=== PATIENT | female | born 1980 | race Caucasian/White ===

== ENCOUNTER 2018-05-01 05:24 | Day surgery (SDC) | payer OTHER ==
[2018-04-27 12:31] VITALS: BMI 28.5
[2018-05-01] MEDS ORDERED: MIDAZOLAM HCL 2 MG/2 ML SINGLE DOSE VIAL ONE (07:49)
[2018-05-01] MEDS ORDERED: LIDOCAINE HCL/PF 2% SDV 5ML VIAL ONE (07:56)
[2018-05-01] MEDS ORDERED: DEXAMETHASONE SOD PHOSPHATE 4 MG/1 ML VIAL ONE ×2 (07:56→08:53)
[2018-05-01] MEDS ORDERED: PROPOFOL 20 ML ONE (07:57)
[2018-05-01] MEDS ORDERED: ROCURONIUM BROMIDE 50 MG/5 ML VIAL ONE (07:57)
--- NOTE | 2018-05-01 08:14 | HP ---
Admitting History and Physical - Admission Chief Complaint: Desires BTL History of Present Illness: 37yo here for tubal sterilization. One child, desires no future childbearing. Currently single. Adamant she wants sterilization vs LARCs. No questions or concerns today. No GODOY, CP/SOB, no N/V. 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: Alzheimer's, CVA, Dementia, Migraine, Multiple Sclerosis, Peripheral Neuropathy, Parkinson's, Seizure, Syncope, TIA, Vertigo, Other Cardiovascular: No: AFIB, Aneurysm, Aortic Insufficiency, Aortic Stenosis, CAD, CHF, Deep Vein Thrombosis, HTN, Hyperlipdemia, [place], Mitral Insufficiency, Mitral Stenosis, Murmur, Pulmonary Hypertension, Other Pulmonary: No: Asthma, Bronchitis, Cancer, COPD, O2 Dependent, Pneumonia, Previously Intubated, Pulmonary Embolus, Pulmonary Fibrosis, Sleep Apnea, Other Gastrointestinal: No: Ascites, Cancer, Constipation, Crohn's Disease, Diverticulitis, Diverticulosis, Esophageal Varices, Gastritis, GERD, GI Bleed, Hemorrhoids, Hiatal Hernia, Inflamatory Bowel Disease, Irritable Bowel Disease, Pancreatitis, Peptic Ulcer Disease, Ulcerative Colitis, Other Hepatobiliary: No: Cirrhosis, Cholelithiasis, Cholecystitis, Choledocholithiasis , Hepatitis A, Hepatitis B, Hepatitis C, Other ...LMP: 04/15/18 ...: No ...: 1 ...Para: 1 Heme/Onc: Yes: Anemia Infectious Disease: No: AIDS, C-Diff, Herpes Zoster, HIV, MRSA, STD's, Tuberculosis, VREF, Other Psych: No: Addictions, Anxiety, Bipolar, Depression, Panic, Psychosis, Schizophrenia, Other Musculoskeletal: No: Bursitis, Chronic low back pain, Hemiparesis, Hemiplegia, Osteoarthritis, Paraplegia, Other Rheumatology: No: Fibromyalgia, Gout, Lupus, Rheumatoid Arthritis, Sarcoidosis, Vasculitis, Other Endocrine: No: Darlington's Disease, Devika's Disease, Diabetes Insipidus, Diabetes Mellitus, Hyperparathyroidism, Hyperthyroidism, Hypothyroidism, Osteopenia, SIADH, Other Dermatology: No: Basal Cell, Cellulitis, Eczema, Melanoma, Psoriasis, Squamous Cell, Other - Past Surgical History Past Surgical History: No: None, AAA Repair, AICD, Amputation, Appendectomy, Arthrosocopy, AV Fistula/Graft, Bariatric Surgery, Breast Biopsy, Bypass, CABG, Carotid Endarterectomy, Cataract Removal, Cholecystectomy, Colectomy, Colonoscopy, Colostomy, Craniotomy, , Cystectomy, Hernia Repair, Hysterectomy, Ileal Conduit, Ileosotomy, Joint Replacement, Kidney Transplant, Laminectomy, Liver Transplant, Mastectomy, Nephrectomy, Oopherectomy, Orchiectomy, Permanent Pacemaker, Prostatectomy, Splenectomy, Stent, Thoracotomy , TURP, Tonsillectomy, Tubal Ligation, Upper Endoscopy, Valve Replacement, Vasectomy, Vein Stripping/Ligation - Smoking History Smoking history: Never smoked Have you smoked in the past 12 months: No - Alcohol/Substance Use Hx Alcohol Use: No History of Substance Use: reports: None - Social History Usual Living Arrangement: Yes: Alone, With Child History of Recent Travel: No Home Medications - Allergies Allergies/Adverse Reactions: Allergies Allergy/AdvReac Type Severity Reaction Status Date / Time No Known Allergies Allergy Verified 04/27/18 12:31 - Home Medications Home Medications: Ambulatory Orders NK [No Known Home Medication] 04/27/18 Physical Examination Vital Signs: Vital Signs Temperature 98.5 F 05/01/18 06:37 Pulse Rate 86 05/01/18 06:37 Respiratory Rate 18 05/01/18 06:37 Blood Pressure 125/72 05/01/18 06:37 O2 Sat by Pulse Oximetry (%) 99 05/01/18 06:37 Constitutional: Yes: Well Nourished, No Distress, Calm Eyes: Yes: WNL, Conjunctiva Clear, EOM Intact HENT: Yes: WNL, Atraumatic, Normocephalic Neck: Yes: WNL, Supple, Trachea Midline Cardiovascular: Yes: WNL, Regular Rate and Rhythm Respiratory: Yes: WNL, Regular, CTA Bilaterally Gastrointestinal: Yes: WNL, Normal Bowel Sounds Musculoskeletal: Yes: WNL Extremities: Yes: WNL Edema: No Integumentary: Yes: WNL Neurological: Yes: WNL, Alert, Oriented ...Motor Strength: WNL Psychiatric: Yes: WNL Problem List - Problems (1) Sterilization Code(s): Z30.2 - ENCOUNTER FOR STERILIZATION Assessment/Plan 37yo here for sterilization, LSC bilateral salpingectomy All questions answered; consents previously signed Declined alternative LARCs Risk of procedure including bleeding, infection, injury to bladder, bowel, ovaries, ureters discussed; consent signed NPO, IVFs SCDs, Gallegos Proceed to OR for LSC bilateral salpingectomy Kera Hager MD
[2018-05-01] MEDS ORDERED: BUPIVACAINE HCL/PF 0.25% (2.5MG/ML) 10 ML VIAL ONE (08:42)
[2018-05-01] MEDS ORDERED: NEOSTIGMINE METHYLSULFATE 0.5 MG/ML - 10 ML MDV ONE (08:53)
[2018-05-01] MEDS ORDERED: GLYCOPYRROLATE 0.2 MG/1 ML VIAL ONE (08:53)
[2018-05-01] MEDS ORDERED: BUPIVACAINE HCL/PF 0.25% (2.5MG/ML) 10 ML VIAL IJ ONE (08:55)
[2018-05-01] MEDS ORDERED: LACTATED RINGERS SOLUTION 1,000 ML IV SCH (09:15)
[2018-05-01] MEDS ORDERED: oxyCODONE HCL 5 MG TABLET PO PRN (09:15)
[2018-05-01] MEDS ORDERED: PROMETHAZINE HCL 25 MG/1 ML VIAL IVPB PRN (09:15)
[2018-05-01] MEDS ORDERED: KETOROLAC TROMETHAMINE 30 MG/1 ML VIAL IVPUSH PRN (09:16)
--- NOTE | 2018-05-01 09:22 | OP ---
Operative Note - Note: Operative Date: 05/01/18 Pre-Operative Diagnosis: Sterilization Operation: Laproscopic bilateraly salpingectomy Post-Operative Diagnosis: Same as Pre-op Surgeon: Patsy Hager Chef Concierge: Mahad Devries Anesthesia: General Estimated Blood Loss (mls): 25 Fluid Volume Replaced (mls): 700 Operative Report Dictated: Yes
--- NOTE | 2018-05-01 09:23 | SURG ---
Surgery Basket Grader Note Basket Grader: Mahad Devries PA-C Date of Service: 05/01/18 Diagnosis: Sterilization Procedure: Laproscopic bilateral salpingectomy I was present for the entirety of the operative procedure. For further detail, please refer to operative report. Visit type - Case Type Case Type: Scheduled - Emergency Emergency Visit: No - New patient This patient is new to me today: Yes Date on this admission: 05/01/18
--- NOTE | 2018-05-01 09:30 | OP ---
Operative Note - Note: Operative Date: 05/01/18 Pre-Operative Diagnosis: Desires sterilization Operation: Laparoscopic Bilateral Salpingectomy, Right Ovarian cystectomy Findings: Normal tubes bilaterally, normal left ovary and right ovary with large simple cyst, normal appendix, normal uterus Post-Operative Diagnosis: Same as Pre-op Surgeon: Patsy Hager Night Clerk: Mahad Devries Specimens Removed: bilateral fallopian tubes Estimated Blood Loss (mls): 25 Operative Report Dictated: Yes
[2018-05-01 10:35] VITALS: BP 115/66; PULSE 86; TEMP 97.6
--- NOTE | 2018-05-01 11:31 | OP ---
DATE OF OPERATION: 05/01/2018 PREOPERATIVE DIAGNOSIS: Desires permanent sterilization. POSTOPERATIVE DIAGNOSIS: Desires permanent sterilization, right ovarian cyst. PROCEDURE: Laparoscopic bilateral salpingectomy, right ovarian cyst aspiration. SURGEON: Patsy Hager MD ANIMAL CONTROL SUPERVISOR: RAJI Nice ANESTHESIA: General. IV FLUIDS: 700. ESTIMATED BLOOD LOSS: 25 mL. URINE OUTPUT: 200 mL of clear urine at the end of the procedure. FINDINGS: Normal fallopian tubes bilaterally. Normal left ovary. Right ovary with large simple-appearing cyst. Normal uterus. Normal appendix. SPECIMENS: Bilateral fallopian tubes. CONDITION: Stable to recovery. COMPLICATIONS: None. DESCRIPTION OF PROCEDURE: After the appropriate consents were signed, the patient was taken to the operating room where general anesthesia was administered. She was placed in lithotomy position. The abdomen and vagina were prepped and draped in a normal sterile fashion. A Gallegos catheter was inserted. Then 0.25% Marcaine was injected into the umbilicus. Then using a 15-blade scalpel, a small incision was made. A 5-mm trocar was introduced under direct visualization. The abdomen was entered without difficulty. The abdomen was insufflated with gas. The patient was placed in Trendelenburg position. Under direct visualization, a 5-mm trocar was introduced into the left lower quadrant under direct visualization and into the right lower quadrant under direct visualization. Abdominal cavity was inspected. Normal fallopian tubes were noted bilaterally. Normal uterus. Left ovary appeared normal. The right ovary had a large, simple-appearing cyst. The fallopian tube on the left was grasped by the fimbriated end and inspected all the way to its insertion at the uterus. Using the LigaSure device, the fallopian tube was transected along the mesosalpinx all the way up to its insertion at the uterus where it was transected. The bite sites were noted to be hemostatic. The stump was noted to be hemostatic, and the left fallopian tube was removed through the left lower quadrant port. Attention was then paid to the right fallopian tube, which was also grasped midline and then carried through to the fimbriated ends, which appeared normal. Using the LigaSure device, the fallopian tube was transected along the mesosalpinx all the way again to its insertion at the uterus where it was transected and easily removed through a right lower quadrant port. The tubal stumps were noted to be hemostatic. No bleeding was noted. Using an aspiration needle, the decision was made to aspirate the large follicular cyst on the patient's right ovary. The ovary was stabilized with a grasper. Under direct visualization, the ovary was punctured with the aspiration needle. Straw-colored fluid was removed. No bleeding was noted. The ovary was markedly reduced in size. Both trocars in the right lower quadrant and left lower quadrant ports were removed under direct visualization. The umbilical port was then removed. The incisions were closed with 4-0 Biosyn on the right and left lower quadrant ports. The umbilical one was closed with Dermabond. Gallegos catheter was removed. The patient was taken from the operating room to the recovery room in stable condition. MD KAMILLA BELLO/[id number]
--- NOTE | 2018-05-02 14:47 | PATH ---
Surgical Pathology Report Patient Name: PARKER WEBBER [facility]. Rec. #: [id number] /Age/Gender: 1980 (Age: 37) / F Account: [id number] Location: [facility] Taken: 05/01/2018 Received: 05/01/2018 Reported: 05/02/2018 Physicians: Patsy Hager Specimen(s) Received A: RIGHT FALLOPIAN TUBE B: LEFT FALLOPIAN TUBE Clinical History Desired sterilization Final Diagnosis A. RIGHT FALLOPIAN TUBE, RESECTION: COMPLETE CROSS SECTION OF THE FALLOPIAN TUBE LUMEN IDENTIFIED. B. LEFT FALLOPIAN TUBE, RESECTION: COMPLETE CROSS SECTION OF THE FALLOPIAN TUBE LUMEN IDENTIFIED. Electronically Signed Pavithra Pope M.D. Gross Description A. Received in formalin labeled "right fallopian tube," is a 6 cm in length fimbriated portion of fallopian tube. The outer surface is gaines purple and smooth. Sectioning reveals an unremarkable lumen. Gas Tester sections are submitted in 2 cassettes as follows: 1-fimbria; 2-cross sections of fallopian tube. B. Received in formalin labeled "left fallopian tube," is a 5 cm in length fimbriated fallopian tube. The outer surface is gaines purple and smooth. Sectioning reveals an unremarkable lumen. Gas Tester sections are submitted in 2 cassettes as follows: 1-fimbria; 2-cross sections of fallopian tube. /05/01/201805/01/2018
== END 2018-05-01 12:15 | disposition home or self-care (01) ==
LOC: JASU-SURG 05:24
PROVIDERS: ATTEND Obstetrics & Gynecology
PROC: 0UB04ZZ Excision of Right Ovary, Percutaneous Endoscopic Approach (ICD-10-PCS; 2018-05-01)
PROC: 0U574ZZ Destruction of Bilateral Fallopian Tubes, Percutaneous Endoscopic Approach (ICD-10-PCS; principal; 2018-05-01 08:00)
DX: Z30.2 Encounter for sterilization (principal); N83.201 Unspecified ovarian cyst, right side
CPT/HCPCS: 36415; 84703; 86850; 86900; 86901; 88302-TC; 94760

== ENCOUNTER 2018-11-27 12:17 | Inpatient (IN) | payer OTHER ==
--- NOTE | 2018-11-27 13:02 | PDOC ---
History of Present Illness - General Chief Complaint: Edema Stated Complaint: SENT BY PCP Time Seen by Provider: 11/27/18 12:41 History Source: Patient - History of Present Illness Occurred: reports: other Severity: Yes: severe Lower Extremity Pain Location: left: other (LLE) Past History - Past Medical History Allergies/Adverse Reactions: Allergies Allergy/AdvReac Type Severity Reaction Status Date / Time No Known Allergies Allergy Verified 04/27/18 12:31 Home Medications: Ambulatory Orders NK [No Known Home Medication] 11/27/18 Anemia: Yes - Suicide/Smoking/Psychosocial Hx Smoking History: Never smoked Have you smoked in the past 12 months: No Hx Alcohol Use: No Drug/Substance Use Hx: No Substance Use Type: None Review of Systems - Review of Systems Constitutional: No: Chills, Fever Respiratory: No: Shortness of Breath Cardiac (ROS): No: Chest Pain, Palpitations *Physical Exam - Vital Signs Last Vital Signs Temp Pulse Resp BP Pulse Ox 99 F 77 19 134/77 99 11/27/18 12:30 11/27/18 12:30 11/27/18 12:30 11/27/18 12:30 11/27/18 12:30 - Physical Exam General Appearance: Yes: Appropriately Dressed. No: Apparent Distress HEENT: positive: Normal Voice Neck: positive: Supple Respiratory/Chest: positive: Lungs Clear, Normal Breath Sounds. negative: Respiratory Distress Cardiovascular: positive: Regular Rate, S1, S2 Extremity: positive: Pedal Edema (edema to L foot extending to distal thigh, pedal pulses intact,no erythema) Integumentary: positive: Dry, Warm Neurologic: positive: Fully Oriented, Alert, Normal Mood/Affect ED Treatment Course - LABORATORY CBC & Chemistry Diagram: 11/27/18 13:00 11/27/18 13:00 Medical Decision Making - Medical Decision Making 11/27/18 12:53 38 yo F, s/p surgery for varicose veins 08/20, here w/ LLE pain and swelling s/p liposuction while in 10/09/18. Has since been evaluated by her vascular MD when she returned from the [facility] [place] 1 week ago and was sent for an ultrasound this a.m. which demonstrated DVT extending from SFJ to pop vein per report pt has on her person. Patient has no cough, hemoptysis, SOB, CP or palpitations See exam Provoked DVT s/p recent liposuction in 10/20 Extensive DVT to CFV to distal GSV on US this am per report No resp/cardiac sxs at this time to suspect PE Stable and well ellen w/ edema to L foot that extends to distal thigh, no erythema , pedal pulses intact -labs -dose of lovenox -admit 11/27/18 14:43 US here shows extensive DVT to external iliac vein extending to posterior tibial vein. Labs unremarkable. Has since been given dose of Lovenox. Will contact Dr. Delgado to arrange admission *DC/Admit/Observation/Transfer Diagnosis at time of Disposition: DVT, lower extremity Qualifiers: Affected thrombotic vein of extremity: iliac Chronicity: unspecified Laterality : left Qualified Code(s): I82.422 - Acute embolism and thrombosis of left iliac vein - Discharge Dispostion Condition at time of disposition: Stable Decision to Admit order: Yes - Referrals - Patient Instructions - Post Discharge Activity
[2018-11-27 13:23] LABS: BASO % 0.6 % (0-2.0); EOS % 1.2 % (0-4.5); HEMATOCRIT 35.4 % (32.4-45.2); HEMOGLOBIN 11.1 GM/dL (10.7-15.3); LYMPH % 31.7 % (8-40); MCH 25.6 pg (25.7-33.7); MCHC 31.5 g/dl (32.0-36.0); MEAN CELL VOLUME 81.3 fl (80-96); MEAN PLT VOLUME 8.1 fl (7.5-11.1); MONO % 6.5 % (3.8-10.2); PLATELET COUNT 344 K/MM3 (134-434); RBC 4.35 M/mm3 (3.60-5.2); RDW 18.5 % (11.6-15.6); WHITE BLOOD COUNT 6.8 K/mm3 (4.0-10.0)
[2018-11-27 13:26] LABS: PH,URINE 5.5 (5.0-8.0); URINE APPEARANCE CLEAR; URINE BILIRUBIN NEGATIVE (NEGATIVE); URINE COLOR YELLOW; URINE GLUCOSE (UA) NEGATIVE (NEGATIVE); URINE KETONE NEGATIVE (NEGATIVE); URINE LEUK ESTERASE NEGATIVE (NEGATIVE); URINE NITRITE NEGATIVE (NEGATIVE); URINE PROTEIN NEGATIVE (NEGATIVE); URINE UROBILINOGEN 0.2 mg/dL (0.2-1.0)
[2018-11-27] MEDS ORDERED: ENOXAPARIN NA (PORCINE) 80 MG/0.8 ML DISP.SYRIN SQ ONE ×2 (13:36→14:14)
[2018-11-27 13:57] LABS: ALBUMIN 3.8 g/dl (3.4-5.0); BILIRUBIN,TOTAL 0.3 mg/dL (0.2-1); BLOOD UREA NITROGEN 5.3 mg/dL (7-18); CALCIUM 9.3 mg/dL (8.5-10.1); CREATININE 0.7 mg/dL (0.55-1.3); POTASSIUM 3.7 mmol/L (3.5-5.1); TOT PROT 7.9 g/dl (6.4-8.2)
--- NOTE | 2018-11-27 16:48 | HP ---
Admitting History and Physical - Primary Care Physician PCP: Charlette Delgado - Admission History of Present Illness: 38 yo F, s/p surgery for varicose veins 08/20, here w/ LLE pain and swelling s/p liposuction while in [place] 10/09/18. Has since been evaluated by her vascular MD when she returned from the [place] 1 week ago and was sent for an ultrasound this a.m. which demonstrated DVT extending from SFJ to pop vein per report pt has on her person. Patient has no cough, hemoptysis, SOB, CP or palpitations - Past Medical History ...LMP: 04/15/18 Heme/Onc: Yes: Anemia - Smoking History Smoking history: Never smoked Have you smoked in the past 12 months: No - Alcohol/Substance Use Hx Alcohol Use: No History of Substance Use: reports: None - Social History History of Recent Travel: No Home Medications - Allergies Allergies/Adverse Reactions: Allergies Allergy/AdvReac Type Severity Reaction Status Date / Time No Known Allergies Allergy Verified 04/27/18 12:31 - Home Medications Home Medications: Ambulatory Orders NK [No Known Home Medication] 11/27/18 Physical Examination Vital Signs: Vital Signs Temperature 99 F 11/27/18 12:30 Pulse Rate 75 11/27/18 15:39 Respiratory Rate 18 11/27/18 15:39 Blood Pressure 131/79 11/27/18 15:39 O2 Sat by Pulse Oximetry (%) 100 11/27/18 15:39 Constitutional: Yes: No Distress HENT: Yes: Atraumatic Neck: Yes: Supple Cardiovascular: Yes: Regular Rate and Rhythm Respiratory: Yes: CTA Bilaterally Gastrointestinal: Yes: Normal Bowel Sounds Extremities: Yes: WNL, Other (llex swollen and tender) Edema: Yes Edema: LLE: 2+ Neurological: Yes: Alert, Oriented Labs: CBC, BMP 11/27/18 13:00 11/27/18 13:00 Problem List - Problems (1) DVT, lower extremity Assessment/Plan: on lovenox will get hematology consult prn pain meds Code(s): I82.409 - ACUTE EMBOLISM AND THOMBOS UNSP DEEP VN UNSP LOWER EXTREMITY Qualifiers: Affected thrombotic vein of extremity: iliac Chronicity: unspecified Laterality: left Qualified Code(s): I82.422 - Acute embolism and thrombosis of left iliac vein Assessment/Plan Laboratory Tests 11/27/18 11/27/18 11/27/18 13:00 13:00 13:00 WBC 6.8 RBC 4.35 Hgb 11.1 Hct 35.4 MCV 81.3 MCH 25.6 L MCHC 31.5 L RDW 18.5 H Plt Count 344 MPV 8.1 Absolute Neuts (auto) 4.1 Neutrophils % 60.0 Lymphocytes % 31.7 Monocytes % 6.5 Eosinophils % 1.2 Basophils % 0.6 Nucleated RBC % 0 Sodium 143 Potassium 3.7 Chloride 110 H Carbon Dioxide 24 Anion Gap 9 BUN 5.3 L Creatinine 0.7 Est GFR (CKD-EPI)AfAm 125.61 Est GFR (CKD-EPI)NonAf 108.38 Random Glucose 103 Calcium 9.3 Total Bilirubin 0.3 AST 19 ALT 24 Alkaline Phosphatase 98 Total Protein 7.9 Albumin 3.8 Urine Color Urine Appearance Urine pH Ur Specific [place] Urine Protein Urine Glucose (UA) Urine Ketones Urine Blood Urine Nitrite Urine Bilirubin Urine Urobilinogen Ur Leukocyte Esterase Urine HCG, Qual Negative 11/27/18 11/28/18 11/28/18 13:00 06:38 06:38 WBC 4.3 RBC 4.23 Hgb 11.0 Hct 33.9 MCV 80.1 MCH 25.9 MCHC 32.3 RDW 18.3 H Plt Count 282 MPV 7.8 Absolute Neuts (auto) 2.1 Neutrophils % 49.7 Lymphocytes % 35.2 Monocytes % 9.9 Eosinophils % 4.3 D Basophils % 0.9 Nucleated RBC % 0 Sodium 144 Potassium 3.8 Chloride 111 H Carbon Dioxide 24 Anion Gap 9 BUN 7.0 Creatinine 0.7 Est GFR (CKD-EPI)AfAm 125.61 Est GFR (CKD-EPI)NonAf 108.38 Random Glucose 94 Calcium 8.8 Total Bilirubin 0.3 AST 19 ALT 22 Alkaline Phosphatase 85 Total Protein 6.7 Albumin 3.0 L Urine Color Yellow Urine Appearance Clear Urine pH 5.5 Ur Specific [place] 1.014 Urine Protein Negative Urine Glucose (UA) Negative Urine Ketones Negative Urine Blood Negative Urine Nitrite Negative Urine Bilirubin Negative Urine Urobilinogen 0.2 Ur Leukocyte Esterase Negative Urine HCG, Qual Active Medications Generic Name Dose Route Start Last Admin Trade Name Freq PRN Reason Stop Dose Admin Acetaminophen 650 mg 11/27/18 16:49 Tylenol - PO Q6H PRN FEVER Enoxaparin Sodium 60 mg 11/27/18 22:00 11/28/18 09:30 Lovenox - SQ 60 mg Q12H BELINDA Administration
[2018-11-27] MEDS ORDERED: ACETAMINOPHEN 325 MG TABLET (FP) PO PRN (16:49)
[2018-11-27 17:22] VITALS: BMI 25.9
[2018-11-27] MEDS: ENOXAPARIN NA (PORCINE) 60 MG/0.6 ML DISP.SYRIN SQ SCH (23:25)
--- NOTE | 2018-11-27 23:40 | CONSULT ---
Consult - text type - Consultation Consultation Note: 38 yo F, s/p surgery for varicose veins 08/20, here w/ LLE pain and swelling s/p liposuction while in 10/09/18. Has since been evaluated by her vascular MD when she returned from the [place] 1 week ago and was sent for an ultrasound this a.m. which demonstrated DVT extending from SFJ to pop vein per report. Patient has no cough, hemoptysis, SOB, CP or palpitations Discussed in great detail via cylinder worker No family h/o blood clots/cancer Denies use of OCPs No h/o bleeding diathesis Last Vital Signs Temp Pulse Resp BP Pulse Ox 99 F 77 19 134/77 99 11/27/18 12:30 11/27/18 12:30 11/27/18 12:30 11/27/18 12:30 11/27/18 12:30 - Physical Exam General Appearance: Yes: Appropriately Dressed. No: Apparent Distress Neck: positive: Supple Respiratory/Chest: positive: Lungs Clear, Normal Breath Sounds. negative: Respiratory Distress Cardiovascular: positive: Regular Rate, S1, S2 Extremity: positive: Pedal Edema (edema to L foot extending to distal thigh, pedal pulses intact,no erythema) Neurologic: positive: Fully Oriented, Alert, Normal Mood/Affect A/P Provoked DVT s/p recent liposuction in 10/20 Extensive DVT to CFV to distal GSV on US this am per report US here shows extensive DVT from left external iliac vein extending to posterior tibial vein Patient is currently on lovenox will request vascular evaluation aswell Based on clinical course will switch to NOAC at discharge
[2018-11-28 07:06] LABS: BASO % 0.9 % (0-2.0); EOS % 4.3 % (0-4.5); HEMATOCRIT 33.9 % (32.4-45.2); LYMPH % 35.2 % (8-40); MCH 25.9 pg (25.7-33.7); MCHC 32.3 g/dl (32.0-36.0); MEAN CELL VOLUME 80.1 fl (80-96); MEAN PLT VOLUME 7.8 fl (7.5-11.1); MONO % 9.9 % (3.8-10.2); NEUT % 49.7 % (42.8-82.8); RBC 4.23 M/mm3 (3.60-5.2); RDW 18.3 % (11.6-15.6); WHITE BLOOD COUNT 4.3 K/mm3 (4.0-10.0)
[2018-11-28 08:12] LABS: POTASSIUM 3.8 mmol/L (3.5-5.1)
[2018-11-28 08:29] LABS: BILIRUBIN,TOTAL 0.3 mg/dL (0.2-1); CALCIUM 8.8 mg/dL (8.5-10.1); CREATININE 0.7 mg/dL (0.55-1.3); TOT PROT 6.7 g/dl (6.4-8.2)
[2018-11-28 08:39] LABS: PLATELET COUNT 282 K/MM3 (134-434)
[2018-11-28] MEDS: ENOXAPARIN NA (PORCINE) 60 MG/0.6 ML DISP.SYRIN SQ SCH ×2 (09:30→21:43)
--- NOTE | 2018-11-28 09:30 | EKG ---
Test Reason : Blood Pressure : / mmHG Vent. Rate : 066 BPM Atrial Rate : 066 BPM P-R Int : 164 ms QRS Dur : 084 ms QT Int : 422 ms P-R-T Axes : 015 -07 -01 degrees QTc Int : 442 ms NORMAL SINUS RHYTHM NORMAL ECG NO PREVIOUS ECGS AVAILABLE Confirmed by Luciano Alejandre MD ([id number]) on 11/28/2018 9:30:01 AM Referred By: Confirmed By:Luciano Alejandre MD
--- NOTE | 2018-11-28 11:03 | CONSULT ---
- Consultation REQUESTING PROVIDER: CONSULT REQUEST: We have been asked to surgically evaluate this patient for left leg DVT. PCP:Charlette Delgado HISTORY OF PRESENT ILLNESS: The patient was interviewed using the [employer] phone #[phone]. She states that she had a tummy tuck on 10/[address] After her surgery her b/l lower extremities were swollen. She was told by her surgeon that it should improve in 3 to 4 weeks. This was the case for the right leg but her left leg remained swollen. She went to a center, here in the [facility] to have further work completed on her varicose veins. They examined her and noted her left leg to be swollen and obtained a study which revealed a clot. She was then sent for admission. She had what was described as superficial injections of spider veins in 08/20 on the left leg. The patient was scheduled to have right vein injections also. She denies any h/o clots/coagulopathies for herself or in her family. PMHx: PSHx: b/l salpingectomy and right ovarian cystectomy 04/22. abdominoplasty 2018. Vein injections 08/20 Home Medications Medication Instructions Recorded NK [No Known Home Medication] 11/27/18 Allergies Allergy/AdvReac Type Severity Reaction Status Date / Time No Known Allergies Allergy Verified 04/27/18 12:31 REVIEW OF SYSTEMS: CONSTITUTIONAL: Absent: fever, chills CARDIOVASCULAR: Absent: chest pain, palpitations, RESPIRATORY: Absent: cough, shortness of breath GASTROINTESTINAL: Absent: abdominal pain, nausea, vomiting, h/o history of gastritis/bleeding HEMATOLOGIC/IMMUNOLOGIC: Absent: easy bleeding, easy bruising PHYSICAL EXAM: GENERAL: Awake, alert, and fully oriented, in no acute distress.. LUNGS: Clear to auscultation bilat anteriorly. HEART: Regular rate and rhythm. ABDOMEN: Soft, nontender, not distended, lower abdomen scar healed except for midline area approximately 6cm x 2 cm Various superficial wounds. No erythema and minimal drainage. LOWER EXTREMITIES: 2+ DP/PT pulses, warm, well-perfused b/l. PSYCH: Cooperative. Good eye contact. Appropriate mood and affect. Vital Signs Temperature 98.5 F 11/28/18 05:49 Pulse Rate 77 11/28/18 05:49 Respiratory Rate 20 11/28/18 05:49 Blood Pressure 105/65 11/28/18 05:49 O2 Sat by Pulse Oximetry (%) 98 11/27/18 21:00 Lab Results WBC 4.3 K/mm3 (4.0-10.0) 11/28/18 06:38 RBC 4.23 M/mm3 (3.60-5.2) 11/28/18 06:38 Hgb 11.0 GM/dL (10.7-15.3) 11/28/18 06:38 Hct 33.9 % (32.4-45.2) 11/28/18 06:38 MCV 80.1 fl (80-96) 11/28/18 06:38 MCHC 32.3 g/dl (32.0-36.0) 11/28/18 06:38 RDW 18.3 % (11.6-15.6) H 11/28/18 06:38 Plt Count 282 K/MM3 (134-434) 11/28/18 06:38 Sodium 144 mmol/L (136-145) 11/28/18 06:38 Potassium 3.8 mmol/L (3.5-5.1) 11/28/18 06:38 Chloride 111 mmol/L (98-107) H 11/28/18 06:38 Carbon Dioxide 24 mmol/L (21-32) 11/28/18 06:38 Anion Gap 9 MMOL/L (8-16) 11/28/18 06:38 BUN 7.0 mg/dL (7-18) 11/28/18 06:38 Creatinine 0.7 mg/dL (0.55-1.3) 11/28/18 06:38 Random Glucose 94 mg/dL (74-106) 11/28/18 06:38 Calcium 8.8 mg/dL (8.5-10.1) 11/28/18 06:38 DVT: 11/27: Partial compression of the left external and CFV, flow is present around the thrombus. Non compression of the left femoral/popliteal vein(no flow ) noncompression of the posterior tibial vein with minimal flow. Problem List - Problems (1) DVT, lower extremity Assessment/Plan: Case D/w Dr. House, no need for any thrombolysis. This was most likely a provoked event that happened at time of her surgery. She has had swelling since her surgery on 10/09 and appears to be a chronic in nature. Also the ultrasound studies reveal show partial compression with flow in the external iliac/CFV. She was seen by hematology and no need for further workup. She is being treated with lovenox SQ. Recommend to continue lovenox SQ/or anticoagulation treatment for 6 months Leg elevation and compression. Code(s): I82.409 - ACUTE EMBOLISM AND THOMBOS UNSP DEEP VN UNSP LOWER EXTREMITY Qualifiers: Affected thrombotic vein of extremity: iliac Chronicity: unspecified Laterality: left Qualified Code(s): I82.422 - Acute embolism and thrombosis of left iliac vein
--- NOTE | 2018-11-28 11:54 | PN ---
Physical Exam: SUBJECTIVE: Patient seen and examined at bedside. Continued swelling and mild discomfort of left lower extremity persists as per patient. No acute overnight events. Denies chest pain, shortness of breath, nausea, vomiting, diarrhea, fevers, chills. Reports she has a scar from her liposuction in the lower aspect of her abdomen without pain or tenderness Per patient, had varicose vein surgery in august followed by [place]osuction in the [place] on 10/09/18. She denies any bleeding or clotting disorders in either her or her family members. 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 MUSCULOSKELETAL: No CVA Tenderness EXTREMITIES: 2+ pulses, 2+ edema in the left lower extremity, no calf tenderness NEUROLOGICAL: Cranial nerves II-XII intact, no focal deficits Laboratory Results - last 24 hr 11/27/18 11/27/18 11/27/18 13:00 13:00 13:00 WBC 6.8 RBC 4.35 Hgb 11.1 Hct 35.4 MCV 81.3 MCH 25.6 L MCHC 31.5 L RDW 18.5 H Plt Count 344 MPV 8.1 Absolute Neuts (auto) 4.1 Neutrophils % 60.0 Lymphocytes % 31.7 Monocytes % 6.5 Eosinophils % 1.2 Basophils % 0.6 Nucleated RBC % 0 Sodium 143 Potassium 3.7 Chloride 110 H Carbon Dioxide 24 Anion Gap 9 BUN 5.3 L Creatinine 0.7 Est GFR (CKD-EPI)AfAm 125.61 Est GFR (CKD-EPI)NonAf 108.38 Random Glucose 103 Calcium 9.3 Total Bilirubin 0.3 AST 19 ALT 24 Alkaline Phosphatase 98 Total Protein 7.9 Albumin 3.8 Urine Color Urine Appearance Urine pH Ur Specific [place] Urine Protein Urine Glucose (UA) Urine Ketones Urine Blood Urine Nitrite Urine Bilirubin Urine Urobilinogen Ur Leukocyte Esterase Urine HCG, Qual Negative 11/27/18 11/28/18 11/28/18 13:00 06:38 06:38 WBC 4.3 RBC 4.23 Hgb 11.0 Hct 33.9 MCV 80.1 MCH 25.9 MCHC 32.3 RDW 18.3 H Plt Count 282 MPV 7.8 Absolute Neuts (auto) 2.1 Neutrophils % 49.7 Lymphocytes % 35.2 Monocytes % 9.9 Eosinophils % 4.3 D Basophils % 0.9 Nucleated RBC % 0 Sodium 144 Potassium 3.8 Chloride 111 H Carbon Dioxide 24 Anion Gap 9 BUN 7.0 Creatinine 0.7 Est GFR (CKD-EPI)AfAm 125.61 Est GFR (CKD-EPI)NonAf 108.38 Random Glucose 94 Calcium 8.8 Total Bilirubin 0.3 AST 19 ALT 22 Alkaline Phosphatase 85 Total Protein 6.7 Albumin 3.0 L Urine Color Yellow Urine Appearance Clear Urine pH 5.5 Ur Specific [place] 1.014 Urine Protein Negative Urine Glucose (UA) Negative Urine Ketones Negative Urine Blood Negative Urine Nitrite Negative Urine Bilirubin Negative Urine Urobilinogen 0.2 Ur Leukocyte Esterase Negative Urine HCG, Qual Active Medications Generic Name Dose Route Start Last Admin Trade Name Freq PRN Reason Stop Dose Admin Acetaminophen 650 mg 11/27/18 16:49 Tylenol - PO Q6H PRN FEVER Enoxaparin Sodium 60 mg 11/27/18 22:00 11/28/18 09:30 Lovenox - SQ 60 mg Q12H BELINDA Administration ASSESSMENT/PLAN: 38 year old female with significant history of varicose vein surgery and liposuction within the past 2 months presented to the hospital for left lower extremity swelling, erythema and admitted for treatment of left lower extremity DVT #Left Lower Extremity DVT -ultrasound showed extensive DVT from L external iliac vein to the L posterior tibial vein -appears as though it was a provoked DVT from recent surgeries and travel -has no familial history of bleeding or clotting disorders -currently on lovenox 60 BID -continue AC while admitted to hospital -would likely need 3-6 month course of anticoagulation as an outpatient, may be a good candidate for a NOAC -vascular surgery consulted, recommended continuing anticoagulation and leg elevation #Abdominal Wound: from liposuction, no active drainage but has eschar in several areas -recommend local wound care with frequent dressing changes -santyl could be a could option - recommend primary team apply while inpatient Zeke George D.O., PGY-[address] VIZCARRA Visit type - Emergency Visit Emergency Visit: No - New Patient This patient is new to me today: Yes Date on this admission: 11/28/18 - Critical Care Critical Care patient: No ATTENDING PHYSICIAN STATEMENT I saw and evaluated the patient. I reviewed the resident's note and discussed the case with the resident. I agree with the resident's findings and plan as documented. SUBJECTIVE: OBJECTIVE: ASSESSMENT AND PLAN:
--- NOTE | 2018-11-28 17:22 | PN ---
Progress Note, Physician - Current Medication List Current Medications: Active Medications Acetaminophen (Tylenol -) 650 mg PO Q6H PRN PRN Reason: FEVER Enoxaparin Sodium (Lovenox -) 60 mg SQ Q12H BELINDA Last Admin: 11/28/18 09:30 Dose: 60 mg - Objective Vital Signs: Vital Signs Temperature 98.5 F 11/28/18 05:49 Pulse Rate 77 11/28/18 05:49 Respiratory Rate 5 L 11/28/18 09:00 Blood Pressure 105/65 11/28/18 05:49 O2 Sat by Pulse Oximetry (%) 98 11/28/18 09:00 Constitutional: Yes: No Distress HENT: Yes: Atraumatic Neck: Yes: Supple Cardiovascular: Yes: Regular Rate and Rhythm Respiratory: Yes: CTA Bilaterally Gastrointestinal: Yes: Normal Bowel Sounds Extremities: Yes: Other (llex swollen) Edema: Yes Edema: LLE: 2+ Neurological: Yes: Alert, Oriented Labs: CBC, BMP 11/28/18 06:38 11/28/18 06:38 Problem List - Problems (1) DVT, lower extremity Assessment/Plan: on lovenox hematology consult...on board prn pain meds Code(s): I82.409 - ACUTE EMBOLISM AND THOMBOS UNSP DEEP VN UNSP LOWER EXTREMITY Qualifiers: Affected thrombotic vein of extremity: iliac Chronicity: unspecified Laterality: left Qualified Code(s): I82.422 - Acute embolism and thrombosis of left iliac vein
[2018-11-29] MEDS: ENOXAPARIN NA (PORCINE) 60 MG/0.6 ML DISP.SYRIN SQ SCH ×2 (10:01→22:01)
--- NOTE | 2018-11-29 17:30 | PN ---
Progress Note, Physician - Current Medication List Current Medications: Active Medications Acetaminophen (Tylenol -) 650 mg PO Q6H PRN PRN Reason: FEVER Last Admin: 11/29/18 15:11 Dose: 650 mg Enoxaparin Sodium (Lovenox -) 60 mg SQ Q12H BELINDA Last Admin: 11/29/18 10:01 Dose: 60 mg - Objective Vital Signs: Vital Signs Temperature 98.2 F 11/29/18 11:49 Pulse Rate 69 11/29/18 11:49 Respiratory Rate 20 11/29/18 11:49 Blood Pressure 119/69 11/29/18 11:49 O2 Sat by Pulse Oximetry (%) 96 11/29/18 09:00 Constitutional: Yes: No Distress HENT: Yes: Atraumatic Neck: Yes: Supple Cardiovascular: Yes: Regular Rate and Rhythm Respiratory: Yes: CTA Bilaterally Gastrointestinal: Yes: Normal Bowel Sounds Extremities: Yes: Other (llex swelling improving) Edema: Yes Edema: LLE: 1+ Neurological: Yes: Alert, Oriented Labs: CBC, BMP 11/28/18 06:38 11/28/18 06:38 Problem List - Problems (1) DVT, lower extremity Assessment/Plan: on lovenox prn pain meds Code(s): I82.409 - ACUTE EMBOLISM AND THOMBOS UNSP DEEP VN UNSP LOWER EXTREMITY Qualifiers: Affected thrombotic vein of extremity: iliac Chronicity: unspecified Laterality: left Qualified Code(s): I82.422 - Acute embolism and thrombosis of left iliac vein
--- NOTE | 2018-11-29 18:21 | PN ---
Progress Note (short form) - Note Progress Note: Patient seen and examined Complains of some swelling and inflammation of LLE Wound care to abdominal wound with dressing dry and intact Last Vital Signs Temp Pulse Resp BP Pulse Ox 97.8 F 68 20 111/69 96 11/29/18 18:15 11/29/18 18:15 11/29/18 18:15 11/29/18 18:15 11/29/18 09:00 HEENT: HUONG, EOM Intact Cor: RSR, No murmurs, No gallops Lungs: Clear to P&A Abd: Soft, Normal bowel sounds, No organomegaly, dressing suprapubic area Ext:LLE swelling and erythema dorsum of left foot Skin: No rashes, Integument intact CBC, BMP 11/28/18 06:38 11/28/18 06:38 Current Medications Generic Name Dose Route Start Last Admin Trade Name Freq PRN Reason Stop Dose Admin Acetaminophen 650 mg 11/27/18 16:49 11/29/18 15:11 Tylenol - PO 650 mg Q6H PRN Administration FEVER Enoxaparin Sodium 60 mg 11/27/18 22:00 11/29/18 10:01 Lovenox - SQ 60 mg Q12H BELINDA Administration Impression Provoked DVT Wound infection Can bridge to NOAC or coumadin
[2018-11-30] MEDS: ENOXAPARIN NA (PORCINE) 60 MG/0.6 ML DISP.SYRIN SQ SCH (09:33)
[2018-11-30 09:39] VITALS: BP 114/66; PULSE 73; TEMP 98.8
[2018-11-30] MEDS ORDERED: PT OWN MED DRAWER 7, Y5N ONE ×2 (10:58→17:08)
[2018-11-30] MEDS ORDERED: APIXABAN 5 MG TABLET PO SCH ×2 (13:15→16:20)
--- NOTE | 2018-11-30 15:32 | PN ---
Physical Exam: SUBJECTIVE: Patient seen and examined at bedside. Significant sympatomatic improvement. Denies any current complaints. OBJECTIVE: Vital Signs Period Temp Pulse Resp BP Sys/Tripp Pulse Ox Last 24 Hr 97.8 F-98.9 F 64-73 16-20 111-127/64-79 97 GENERAL: A&Ox3, no acute distress EYES: PERRLA, EOMI ENT: Moist mucus membranes NECK: No JVD CHEST: breast exam within normal limits, no masses or nodules palpated LUNGS: CTA, no wheezes HEART: RRR, no murmurs ABDOMEN: Soft, nontender, BS present, incisional scar noted that is poorly healed on lower aspect of abdomen (transversely), no active purulent drainage but it appears as if it is a wound with mild eschar overtop. MUSCULOSKELETAL: No CVA Tenderness EXTREMITIES: 2+ pulses, 2+ edema in the left lower extremity, no calf tenderness NEUROLOGICAL: Cranial nerves II-XII intact, no focal deficits Active Medications Generic Name Dose Route Start Last Admin Trade Name Freq PRN Reason Stop Dose Admin Acetaminophen 650 mg 11/27/18 16:49 11/29/18 15:11 Tylenol - PO 650 mg Q6H PRN Administration FEVER Apixaban 5 mg 11/30/18 13:15 Eliquis - PO BID BELINDA Enoxaparin Sodium 60 mg 11/27/18 22:00 11/30/18 09:33 Lovenox - SQ 60 mg Q12H BELINDA Administration ASSESSMENT/PLAN: 38 year old female with significant history of varicose vein surgery and liposuction within the past 2 months presented to the hospital for left lower extremity swelling, erythema and admitted for treatment of left lower extremity DVT #Left Lower Extremity DVT: unprovoked -continue AC -For discharge, will need apixaban (eliquis) 10mg twice a day for a total of 1 week (another 4 days) followed by 5mg twice a day for 3 months; re-evaluate by PCP for need for longer AC beyond that. -monitor for signs of bleeding Zeke George D.O., PGY-[address] ALBARRAN Visit type - Emergency Visit Emergency Visit: No - New Patient This patient is new to me today: No - Critical Care Critical Care patient: No ATTENDING PHYSICIAN STATEMENT I saw and evaluated the patient. I reviewed the resident's note and discussed the case with the resident. I agree with the resident's findings and plan as documented. SUBJECTIVE: OBJECTIVE: ASSESSMENT AND PLAN:
[2018-11-30 15:53] LABS: BASO % 0.8 % (0-2.0); EOS % 4.5 % (0-4.5); HEMATOCRIT 37.2 % (32.4-45.2); HEMOGLOBIN 11.8 GM/dL (10.7-15.3); LYMPH % 27.8 % (8-40); MCH 25.5 pg (25.7-33.7); MCHC 31.7 g/dl (32.0-36.0); MEAN CELL VOLUME 80.6 fl (80-96); MEAN PLT VOLUME 9.1 fl (7.5-11.1); MONO % 6.9 % (3.8-10.2); PLATELET COUNT 340 K/MM3 (134-434); RBC 4.62 M/mm3 (3.60-5.2); RDW 18.5 % (11.6-15.6); WHITE BLOOD COUNT 6.6 K/mm3 (4.0-10.0)
--- NOTE | 2018-11-30 16:28 | DS ---
Physical Examination Vital Signs: Vital Signs Temperature 98.8 F 11/30/18 09:38 Pulse Rate 73 11/30/18 09:38 Respiratory Rate 18 11/30/18 09:38 Blood Pressure 114/66 11/30/18 09:38 O2 Sat by Pulse Oximetry (%) 97 11/30/18 09:00 Constitutional: Yes: No Distress HENT: Yes: Atraumatic Neck: Yes: Supple Cardiovascular: Yes: Regular Rate and Rhythm Respiratory: Yes: CTA Bilaterally Gastrointestinal: Yes: Normal Bowel Sounds Extremities: Yes: Other (LLEX SWELLING RESOLVING NON TENDER) Edema: Yes Edema: LLE: Trace Neurological: Yes: Alert, Oriented Labs: CBC, BMP 11/30/18 15:15 Discharge Summary Reason For Visit: DVT Current Active Problems DVT, lower extremity (Acute) Condition: Stable - Instructions Diet, Activity, Other Instructions: Follow up with Dr. House in the wound clinic as needed for leg swelling/ compression stockings PER HEMATOLOGY #Left Lower Extremity DVT: unprovoked -continue AC -For discharge, will need apixaban (eliquis) 10mg twice a day for a total of 4 DAYS followed by 5mg twice a day for 3 months; re-evaluate by PCP for need for longer AC beyond that. -monitor for signs of bleeding SEE DR VIZCARRA ...HEMATOLOGY IN 1 WEEK Referrals: Alberto House DO [Staff Physician] - Siva Vizcarra MD [Staff Physician] - - Home Medications Comprehensive Discharge Medication List: Ambulatory Orders Apixaban [Eliquis -] 5 mg PO BID #60 tablet 11/30/18 [facility] D/W [facility] ABOUT MEDS FU DR VIZCARRA 1 WEEK
[2018-11-30 16:30] LABS: ALBUMIN 3.4 g/dl (3.4-5.0); BILIRUBIN,TOTAL 0.2 mg/dL (0.2-1); BLOOD UREA NITROGEN 8.9 mg/dL (7-18); CALCIUM 8.9 mg/dL (8.5-10.1); CREATININE 0.7 mg/dL (0.55-1.3); POTASSIUM 4.1 mmol/L (3.5-5.1); TOT PROT 7.5 g/dl (6.4-8.2)
[2018-11-30] MEDS ORDERED: APIXABAN 5 MG TABLET PO ONE (20:30)
== END 2018-11-30 20:40 | disposition home or self-care (01) | DRG 206 ==
LOC: JER 12:17 → JERBED 14:46 → J6S 16:54
PROVIDERS: ADMIT Internal Medicine; ATTEND Internal Medicine
DX: T81.72XA Complication of vein following a procedure, not elsewhere classified, initial encounter (principal); I82.422 Acute embolism and thrombosis of left iliac vein; I82.442 Acute embolism and thrombosis of left tibial vein; Y83.8 Other surgical procedures as the cause of abnormal reaction of the patient, or of later complication, without mention of misadventure at the time of the procedure
CPT/HCPCS: 36415; 71045-TC-FY; 80053; 81003; 84703; 85025; 93005; 93010; 93971-TC; 99282-25